=== PATIENT | female | born 1950 | race Caucasian/White ===

== ENCOUNTER 2020-06-02 10:47 | Emergency (ER) | payer MEDICARE, OTHER, SELFPAY ==
[2020-06-02 10:54] VITALS: BP 136/72; PULSE 89; RESP 18; TEMP 36.8; O2SAT 95; BMI 19.5
--- NOTE | 2020-06-02 11:01 | XRR_ITS ---
PROCEDURE INFORMATION: Exam: XR Chest, 1 View Exam date and time: 06/02/2020 11:03 AM Age: 69 years old Clinical indication: Other: Syncope TECHNIQUE: Imaging protocol: XR of the chest Views: 1 view. COMPARISON: No relevant prior studies available. FINDINGS: Lungs: Emphysematous change and interstitial prominence. No acute airspace disease. Pleural space: No pleural effusion. Heart/Mediastinum: No cardiomegaly. Vasculature: Calcification of the thoracic aorta. Bones/joints: Unremarkable. Organs: Status post cholecystectomy. XR/XR chest 1V portable [id number] IMPRESSION: Emphysematous change and interstitial prominence.
--- NOTE | 2020-06-02 11:02 | ECG_ITS ---
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 Measurements Intervals [place] Rate: 84 P: 75 AL: 142 QRS: 12 QRSD: 79 T: -15 QT: 361 QTc: 427 Interpretive Statements SINUS RHYTHM POSSIBLE LEFT ATRIAL ENLARGEMENT [-0.1mV P WAVE IN V1/V2] MODERATE T-WAVE ABNORMALITY, CONSIDER LATERAL ISCHEMIA [-0.1+ mV T WAVE IN I/aVL/V5/V6] No previous ECG available for comparison Electronically Signed On 06-03-2020 0:18:09 CDT by Jessee Lugo M.D. [email or web address] - [id number]
--- NOTE | 2020-06-02 11:10 | CTR_ITS ---
PROCEDURE INFORMATION: Exam: CT Head Without Contrast Exam date and time: 06/02/2020 11:32 AM Age: 69 years old Clinical indication: Injury or trauma; Fall; Initial encounter; Blunt trauma (contusions or hematomas); Consciousness not specified; Dizziness; Additional info: Fall/injury TECHNIQUE: Imaging protocol: Computed tomography of the head without contrast. Radiation optimization: All CT scans at this facility use at least one of these dose optimization techniques: automated exposure control; mA and/or kV adjustment per patient size (includes targeted exams where dose is matched to clinical indication); or iterative reconstruction. COMPARISON: No relevant prior studies available. RADIATION DOSE METRICS: Total DLP (mGy-cm): 672.28 FINDINGS: Brain: No acute post-traumatic brain injury. Symmetric prominence of the cortical and cerebellar sulci. Multifocal small-vessel ischemic change and lacunar infarcts in the supra and infratentorial compartments. Ventricles: Normal configuration of the ventricles. Bones/joints: No acute calvarial injury. Sinuses: No sinus fluid. 3 mm polypoid lesion in the right sphenoid sinus. Mastoid air cells: Opacification of the right mastoid air cells and middle ear. Vasculature: Vascular calcification. Soft tissues: No significant scalp hematoma. CT/CT head wo con* [id number] IMPRESSION: 1. No acute post-traumatic brain injury. 2. Nontraumatic findings as described above. Radiation Dose CTDIVOL = (mGy): DLP = 672.28 (mGy-cm)
[2020-06-02 11:25] VITALS: BP 123/71; BP 156/74; BP 171/75; PULSE 84; PULSE 85; PULSE 93
[2020-06-02 11:31] LABS: Basophils % 0.3 %; Eosinophils % 0.1 %; Hematocrit 37.2 % (37.0-47.0); Hemoglobin 11.4 g/dL (11.5-15.3); Lymphocytes # 0.9 10^3/uL (0.8-4.8); Lymphocytes % 7.1 %; Mean Corpuscular HGB Conc 30.6 g/dL (30.0-36.0); Mean Corpuscular Hemoglobin 27.8 pg (28.0-34.0); Mean Corpuscular Volume 90.7 fL (81-99); Mean Platelet Volume 10.2 fL (7.4-10.4); Monocytes % 7.5 %; Neutrophils # 10.73 10^3/uL (1.8-7.7); Neutrophils % 84.4 %; Nucleated Red Blood Cells % 0 %; Platelet Count 294 10^3/cmm (130-400); White Blood Count 12.7 10^3/uL (4.0-10.0)
--- NOTE | 2020-06-02 11:33 | ED_ITS ---
HPI - General Adult General: Chief complaint: General Medical Stated complaint: N/V PASSED OUT AND FALL Time Seen by Provider: 06/02/20 11:01 Source: patient and family Limitations: no limitations History of Present Illness: HPI narrative: Mrs. Moss is a nice 69-year-old female who comes in after feeling chilled yesterday and today and vomiting throughout the night. Patient states she does not remember vomiting through the night but today she does feel nauseated. She states that while in the living room she fell and hit her head but denies passing out or losing consciousness. She denies any abdominal pain or diarrhea. She is unaware that she is ever had a fever. She denies any chest pain or shortness of breath. She denies any upper respiratory symptoms, sore throat, runny nose, congestion, cough, back pain, abdominal pain or urinary symptoms. Patient states she feels weak at this time but otherwise feels okay. Patient's daughter says that her mom seems a little slow to answer today and does not just seem quite her normal self. Associated symptoms: Deny chest pain, dyspnea, headache(s), rash, palpitations or syncope Review of Systems Const: Denies: fever(s) Eyes: Denies: change in vision or blurry vision ENMT: Denies: throat pain or hoarseness Card: Denies: chest pain, palpitations, syncope, pre-syncope or dyspnea on exertion Resp: Denies: dyspnea, productive cough or non-productive cough GI: Denies: abdominal pain or diarrhea : Denies: flank pain, dysuria, urinary frequency or urinary urgency Musc: Denies: neck pain, back pain or extremity pain Skin/Breast: Denies: rash or pruritus Neuro: Denies: headache(s), numbness in extremities, weakness in extremities or dizziness FOR[facility] ED PFSH: Medical History (Updated 06/02/20 @ 14:31 by Radha Sheppard) Hyperlipidemia Physical Exam Const: COMMON NORMALS: no acute distress, patient oriented x3, no limitations, healthy appearing and well nourished GENERAL APPEARANCE: cooperative, well kempt and well developed HENMT: COMMON NORMALS: normocephalic, atraumatic, external ears normal, EAC's normal and Normal external nose present HEAD & SCALP: normal to inspection, normocephalic and atraumatic FACE & SINUS: normal facial exam and face symmetric NOSE: Normal external nose present and Normal nares present EXTERNAL EAR: Yes external ears normal EXTERNAL AUDITORY CANAL: EAC's normal MOUTH: Normal oral and palatal mucosa present, lip normal and tongue normal Eye: COMMON NORMALS: Equal, round and reactive pupils present and conjunctivae normal GENERAL EYE: appearance normal, both eyes and all related structures ALIGNMENT: Yes alignment normal PERIORBITAL: periorbital findings normal EYELID: eyelids normal CONJUNCTIVA: Yes conjunctivae normal SCLERA: sclerae normal PUPIL: Yes Equal, round and reactive pupils present Neck/C-Spine: COMMON NORMALS: full ROM, no lymphadenopathy, supple, no meningeal signs and no JVD GENERAL: Yes normal visual inspection and Yes trachea midline Chest: COMMONS NORMALS: normal inspection of the chest and normal palpation of entire chest wall Resp: COMMON NORMALS: normal respiratory effort, No retractions, No use of accessory muscles and clear to auscultation bilaterally EFFORT & INSPECTION: Yes able to speak in complete sentences and Yes symmetric chest movement AUSCULTATION: clear to auscultation bilaterally, no crackles, no rales, no rhonchi and no wheezes Cardio: COMMON NORMALS: no JVD, regular rate, regular rhythm, S1 normal heart sound present and S2 normal heart sound present RATE: regular rate RHYTHM: regular rhythm HEART SOUNDS: S1 normal heart sound present, S2 normal heart sound present, no click, no gallops, no murmurs, no rubs and abnormal split S2 GI: COMMON NORMALS: Soft to palpation and No hepatosplenomegaly present PALPATION: Yes Soft to palpation, No Tenderness to palpation present (GI), No Guarding due to palpation present (GI), No Rigid due to palpation, Yes No hepatosplenomegaly present, No Hernia present, No Palpable mass present and No Pulsatile mass present : COMMON NORMALS: Yes no CVA tenderness BLADDER/KIDNEY EXAM: Yes no CVA tenderness EXTERNAL FEMALE EXAM: No Hernia present Back/Pelvis: COMMON NORMALS: no CVA tenderness, thoracic and lumbar spine normal to inspection, no thoracic nor lumbar tenderness and thoraco-lumbar ROM normal Extremity: COMMON NORMALS: normal to inspection, full ROM, capillary refill normal, no joint enlargement, no clubbing, cyanosis or edema and no calf tenderness Neuro: COMMON NORMALS: patient oriented x3, CN's II-XII intact bilaterally, moves all extremities, no focal motor deficits and no sensory deficits noted MENINGEAL SIGNS: Yes no meningeal signs SPEECH: speech normal Psych: COMMON NORMALS: mental status grossly normal, Normal thought process present, cooperative, normal affect, speech normal and activity/motor behavior normal APPEARANCE: Yes well kempt SPEECH: Yes normal speech THOUGHT PROCESS: Normal thought process present Skin: COMMON NORMALS: no rashes or lesions noted, turgor normal, no jaundice, no petechiae and no mottling GENERAL SKIN EXAM: no rashes or lesions noted and turgor normal Course Vital Signs: Vital signs: Vital Signs Temperature 98.2 F 06/02/20 10:54 Pulse Rate 76 06/02/20 15:32 Respiratory Rate 22 H 06/02/20 15:32 Blood Pressure 178/84 06/02/20 15:32 Pulse Oximetry 99 06/02/20 15:32 MDM - General Adult MDM Narrative: Medical decision making narrative: 1426 Benjamín is a nice 69-year-old female who comes in with nausea vomiting during the night. She had no chest pain or shortness of breath. Her EKGs are unremarkable and her troponins have not trended significantly. She does have a UTI on exam. Patient feels back to normal now and is been up and is ambulated throughout the ER without any difficulties. Her nausea is gone and she has never vomited here. She is never had abdominal or flank pain here. This time she appears good she is smiling and happy and conversant with her daughter and me. She wants to go home declines staying in the hospital for any further evaluation. The patient understands that she could get worse again and if so she needs to come back and she understands this. Her daughter is agreeing to stay with her for the next 1 to 2 days to make certain she does okay. At this time though she is feeling better and would like to be discharged. Lab Data: Labs: Lab Results 06/02/20 06/02/20 06/02/20 Range/Units 11:17 11:17 11:17 WBC 12.7 H (4.0-10.0) 10^3/ uL RBC 4.10 (4.1-5.3) 10^6/u L Hgb 11.4 L (11.5-15.3) g/dL Hct 37.2 (37.0-47.0) % MCV 90.7 (81-99) fL MCH 27.8 L (28.0-34.0) pg MCHC 30.6 (30.0-36.0) g/dL RDW 15.0 (12.1-15.1) % Plt Count 294 (130-400) 10^3/c mm MPV 10.2 (7.4-10.4) fL Neut % (Auto) 84.4 % Lymph % (Auto) 7.1 % [place] % (Auto) 7.5 % Eos % (Auto) 0.1 % Baso % (Auto) 0.3 % Neut # (Auto) 10.73 H (1.8-7.7) 10^3/u L Lymph # (Auto) 0.9 (0.8-4.8) 10^3/u L [place] # (Auto) 1.0 H (0.2-0.9) 10^3/u L Eos # (Auto) 0.0 (0.0-0.8) 10^3/u L Baso # (Auto) 0.0 (0.0-0.1) 10^3/u L Nucleated RBC % (a uto) 0 % Nucleated RBCs # 0.0 /100WBC Sodium 140 (136-145) mmol/L Potassium 4.0 (3.5-5.1) mmol/L Chloride 107 (98-107) mmol/L Carbon Dioxide 23 (22-29) mmol/L Anion Gap 14.0 (5-19) BUN 19 (8-23) mg/dL Creatinine 1.1 H (0.5-0.9) mg/dL GFR Calculation 49.1 L (90-130) mL/min Glucose 142 H (65-115) mg/dL Calculated Osmolal ity 289 (285-295) mOsm/k g Calcium 9.1 (8.5-10.5) mg/dL Magnesium 2.1 (1.7-2.3) mg/dL Total Bilirubin 0.4 (0.15-1.2) mg/dL AST 17 (0-32) U/L ALT 17 (0-33) U/L Alkaline Phosphata se 120 H (35-105) IU/L Troponin T Baselin e 17 H (0-10) ng/L Troponin T 120 Min [place] (0-10) ng/L Delta Troponin T (0-10) ABS# Total Protein 6.8 (6.6-8.7) g/dL Albumin 3.6 (3.5-5.2) g/dL Globulin 3.2 (1.3-4.6) g/dL Urine Color (Yellow) Urine Appearance (CLEAR) Urine pH (5-7) Ur Specific Gravit y (1.005-1.030) Urine Protein (Negative) Urine Glucose (UA) (Normal) Urine Ketones (Negative) Urine Blood (Negative) Urine Nitrate (Negative) Urine Bilirubin (NEGATIVE) Urine Urobilinogen (Negative) mg/dL Ur Leukocyte Danielle ase (Negative) Urine RBC (0-2) /hpf Urine WBC (0-5) /hpf Ur Squamous Epith Cells (0-5) Amorphous Sediment Urine Bacteria (NONE) 06/02/20 06/02/20 Range/Units 13:08 13:27 WBC (4.0-10.0) 10^3/ uL RBC (4.1-5.3) 10^6/u L Hgb (11.5-15.3) g/dL Hct (37.0-47.0) % MCV (81-99) fL MCH (28.0-34.0) pg MCHC (30.0-36.0) g/dL RDW (12.1-15.1) % Plt Count (130-400) 10^3/c mm MPV (7.4-10.4) fL Neut % (Auto) % Lymph % (Auto) % [place] % (Auto) % Eos % (Auto) % Baso % (Auto) % Neut # (Auto) (1.8-7.7) 10^3/u L Lymph # (Auto) (0.8-4.8) 10^3/u L [place] # (Auto) (0.2-0.9) 10^3/u L Eos # (Auto) (0.0-0.8) 10^3/u L Baso # (Auto) (0.0-0.1) 10^3/u L Nucleated RBC % (a uto) % Nucleated RBCs # /100WBC Sodium (136-145) mmol/L Potassium (3.5-5.1) mmol/L Chloride (98-107) mmol/L Carbon Dioxide (22-29) mmol/L Anion Gap (5-19) BUN (8-23) mg/dL Creatinine (0.5-0.9) mg/dL GFR Calculation (90-130) mL/min Glucose (65-115) mg/dL Calculated Osmolal ity (285-295) mOsm/k g Calcium (8.5-10.5) mg/dL Magnesium (1.7-2.3) mg/dL Total Bilirubin (0.15-1.2) mg/dL AST (0-32) U/L ALT (0-33) U/L Alkaline Phosphata se (35-105) IU/L Troponin T Baselin e (0-10) ng/L Troponin T 120 Min [place] 17.21 H (0-10) ng/L Delta Troponin T 0.21 (0-10) ABS# Total Protein (6.6-8.7) g/dL Albumin (3.5-5.2) g/dL Globulin (1.3-4.6) g/dL Urine Color Yellow (Yellow) Urine Appearance Cloudy (CLEAR) Urine pH 5 (5-7) Ur Specific Gravit y 1.020 (1.005-1.030) Urine Protein 1+ H (Negative) Urine Glucose (UA) Norm (Normal) Urine Ketones 1+ H (Negative) Urine Blood 2+ H (Negative) Urine Nitrate Positive H (Negative) Urine Bilirubin Neg (NEGATIVE) Urine Urobilinogen Norm (Negative) mg/dL Ur Leukocyte Danielle ase 1+ H (Negative) Urine RBC 5-10 H (0-2) /hpf Urine WBC 80-100 H (0-5) /hpf Ur Squamous Epith Cells 0-4 H (0-5) Amorphous Sediment Not Reportable Urine Bacteria 3+ H (NONE) Imaging Data^: CXR: Attestation: I personally reviewed and interpreted this imaging study as follows: My impression: No acute cardiopulmonary findings. CT Head: Radiologist's impression: [address] [address] [address] Scan Report Signed Patient: Rose Moss Unit #: [id number] : 1950 Age/Sex: 69 / F ADM Date: 06/02/20 Loc: ER Room/Bed: Attending Dr: Ordering Provider/Ordering MD: Radha Sheppard DO Date of Service: 06/02/20 Procedure(s): CT head wo con* [id number] Accession Number(s): [id number] Report Number: [id number] PROCEDURE INFORMATION: Exam: CT Head Without Contrast Exam date and time: 06/02/2020 11:32 AM Age: 69 years old Clinical indication: Injury or trauma; Fall; Initial encounter; Blunt trauma (contusions or hematomas); Consciousness not specified; Dizziness; Additional info: Fall/injury TECHNIQUE: Imaging protocol: Computed tomography of the head without contrast. Radiation optimization: All CT scans at this facility use at least one of these dose optimization techniques: automated exposure control; mA and/or kV adjustment per patient size (includes targeted exams where dose is matched to clinical indication); or iterative reconstruction. COMPARISON: No relevant prior studies available. RADIATION DOSE METRICS: Total DLP (mGy-cm): 672.28 FINDINGS: Brain: No acute post-traumatic brain injury. Symmetric prominence of the cortical and cerebellar sulci. Multifocal small-vessel ischemic change and lacunar infarcts in the supra and infratentorial compartments. Ventricles: Normal configuration of the ventricles. Bones/joints: No acute calvarial injury. Sinuses: No sinus fluid. 3 mm polypoid lesion in the right sphenoid sinus. Mastoid air cells: Opacification of the right mastoid air cells and middle ear. Vasculature: Vascular calcification. Soft tissues: No significant scalp hematoma. CT/CT head wo con* [id number] IMPRESSION: 1. No acute post-traumatic brain injury. 2. Nontraumatic findings as described above. Radiation Dose CTDIVOL = (mGy): DLP = 672.28 (mGy-cm) Dictated By: Jerome Pike MD Signed By: Jerome Pike MD Signed Date/Time: 06/02/20 1214 DD/ 1212 EKG Data^: EKG 1: Attestation: I personally reviewed and interpreted this EKG as follows: EKG interpretation date: 06/02/20 EKG interpretation time: 11:16 Interpretation: Normal sinus rhythm at 84 beats a minute, T wave inversions in 3 and aVF, nonspecific T wave findings in V5 and V6. Normal axis, no blocks, normal intervals. No old for comparison. Computer generated interpretation: Chest X-Ray 06/02/20 11:01 IMPRESSION: Emphysematous change and interstitial prominence. Head CT 06/02/20 11:10 IMPRESSION: 1. No acute post-traumatic brain injury. 2. Nontraumatic findings as described above. Radiation Dose CTDIVOL = (mGy): DLP = 672.28 (mGy-cm) EKG 2: Attestation: I personally reviewed and interpreted this EKG as follows: EKG interpretation date: 06/02/20 EKG interpretation time: 12:50 Interpretation: Normal sinus rhythm at 82 beats a minute, nonspecific ST and T wave changes. Unchanged from previous. Computer generated interpretation: Chest X-Ray 06/02/20 11:01 IMPRESSION: Emphysematous change and interstitial prominence. Head CT 06/02/20 11:10 IMPRESSION: 1. No acute post-traumatic brain injury. 2. Nontraumatic findings as described above. Radiation Dose CTDIVOL = (mGy): DLP = 672.28 (mGy-cm) Discharge Plan Discharge Patient Disposition: Home Clinical Impression: Acute UTI Condition: Stable Prescriptions: New Zofran 4 mg tablet 4 mg PO Q6H PRN (Reason: nausea and vomiting) Qty: 20 RF: 0 cefdinir 300 mg capsule 300 mg PO Q12H 10 Days Qty: 20 RF: 0 No Action atorvastatin 20 mg tablet 20 mg PO DAILY RF: 0 aspirin 325 mg Tablet 325 mg PO DAILY RF: 0 Discharge Orders: Discharge Order (Routine); Ordered 06/02/20 Ordered By: Radha Sheppard Referrals: Marion Wilkinson DO [Primary Care Provider] - 1-3 days Discharge Diet: Advance as tolerated Discharge Activity: Increase activity as tolerated Patient Instructions: Urinary Tract Infection in Women (ED), Dysuria (ED) Activity Restrictions/Additional Instructions: Please return to the ER immediately for any of the signs or symptoms listed on your discharge instruction sheets, worsening/changing of your symptoms, you are not getting better as quickly as expected, or for ANY other cause or concerns. Return to the ER immediately for worsening of your symptoms, vomiting, headache, fever, or for any other cause for concern. Discharge Date/Time: 06/02/20 15:33 Coding Level of Care Code ED Customer Service Trainer for Chg Fwd Exam Comprehensive
[2020-06-02] MEDS: acetaminophen 500 mg Tablet 1000 MG PO (11:46)
[2020-06-02] MEDS: sodium chloride 0.9% 1,000 ML 100 ML IV (11:46)
[2020-06-02] MEDS: ondansetron 2 mg/ML SDV 2 mL 4 MG IVP (11:46)
[2020-06-02 11:49] LABS: Alanine Aminotransferase 17 U/L (0-33); Albumin Level 3.6 g/dL (3.5-5.2); Alkaline Phosphatase 120 IU/L (35-105); Aspartate Amino Transferase 17 U/L (0-32); Blood Urea Nitrogen 19 mg/dL (8-23); Calcium 9.1 mg/dL (8.5-10.5); Carbon Dioxide 23 mmol/L (22-29); Chloride 107 mmol/L (98-107); Globulin 3.2 g/dL (1.3-4.6); Glomerular Filtration Rate 49.1 mL/min (90-130); Glucose 142 mg/dL (65-115); Magnesium 2.1 mg/dL (1.7-2.3); Osmolality Calculated 289 mOsm/kg (285-295); Sodium 140 mmol/L (136-145); Total Bilirubin 0.4 mg/dL (0.15-1.2); Total Protein 6.8 g/dL (6.6-8.7)
[2020-06-02 11:51] LABS: Troponin(5th) Baseline 17 ng/L (0-10)
[2020-06-02 12:17] VITALS: BP 163/66; PULSE 80; RESP 23; O2SAT 100
--- NOTE | 2020-06-02 13:02 | ECG_ITS ---
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 Measurements Intervals [place] Rate: 82 P: 66 AL: 175 QRS: -5 QRSD: 81 T: 8 QT: 379 QTc: 445 Interpretive Statements SINUS RHYTHM Possible left atrial enlargement NONSPECIFIC T-WAVE ABNORMALITY Compared to ECG 06/02/2020 11:16:19 Possible ischemia no longer present T-wave abnormality still present Electronically Signed On 06-03-2020 0:34:50 CDT by Jessee Lugo M.D. [id number]
[2020-06-02 14:05] VITALS: BP 153/64; PULSE 75; RESP 18; O2SAT 100
[2020-06-02 14:07] LABS: Troponin 5 2HR 17.21 ng/L (0-10); Troponin 5 2HR Delta 0.21 ABS# (0-10)
[2020-06-02 14:08] LABS: Bilirubin Urine Neg (NEGATIVE); Blood Urine 2+ (Negative); Glucose Urine UA Norm (Normal); Ketones Urine 1+ (Negative); Leukocyte Esterase Urine 1+ (Negative); Nitrate Urine Positive (Negative); Protein Urine 1+ (Negative); Urine Appearance Cloudy (CLEAR); Urine Color Yellow (Yellow); Urobilinogen Urine Norm (Negative); pH Urine 5 (5-7)
[2020-06-02] MEDS: sodium chloride 0.9% 1,000 ML 999 ML IV (14:11)
[2020-06-02 14:17] LABS: Add Urine Culture? Yes; Bacteria Urine 3+; Squamous Epithelial Cell Urine 0-4 (0-5); WBC Urine 80-100 /hpf (0-5)
[2020-06-02 14:58] VITALS: BP 175/80; PULSE 76; RESP 16; O2SAT 100
[2020-06-02] MEDS: cefTRIAXone 1,000 MG in sodium chloride 0.9% (plus) 50 ML 100 MG IV (14:58)
[2020-06-02 15:32] VITALS: BP 178/84; PULSE 76; RESP 22; O2SAT 99
== END 2020-06-02 15:33 | disposition home or self-care (01) ==
PROVIDERS: Emergency Provider Emergency Medicine; PCP Family Medicine
DX: N39.0 Urinary tract infection, site not specified (principal); Z79.82 Long term (current) use of aspirin; E78.5 Hyperlipidemia, unspecified
CPT/HCPCS: 12345; 36415; 70450; 71045; 80053; 81001; 83735; 84484; 85025; 87077; 87086; 87186; 93005; 96361; 96365; 96375; 99284; J0696; J2405; J7030

== ENCOUNTER 2021-07-09 14:59 | Outpatient (CLI) | payer MEDICARE, OTHER, SELFPAY ==
--- NOTE | 2021-07-09 15:06 | CT_ITS ---
WS: [id number] CTA scan of the head and neck. Additional two-dimensional coronal and sagittal reconstruction along w ith MIP images was performed. 07/09/2021 Clinical Data: CVA Comparison: CT head, 06/02/2020. DLP: 1825.[address] scans at [facility] use at least one of these dose optimization techniques: automated e xposure control; mA and/or kV adjustment per patient size (includes targeted exams where dose is matc hed to clinical indication); or iterative reconstruction. Findings: The carotid arteries bifurcate normally into the internal carotid arteries. There is slight narrowing of the origin of the left internal carotid artery. There is calcification at the right carotid bifur cation. The vertebral arteries are normal. There is no lymphadenopathy within the neck. The intracere bral circulation shows that the internal carotid arteries bifurcate into the anterior and middle cere bral arteries. The basilar arterial system is normal. No aneurysms are seen. There are lacunar infarc ts bilaterally unchanged. There is no prevertebral soft tissue swelling. The lung apices are normal. Cervical spine shows osteo arthritis at C5-C7 with disc space narrowing. No prevertebral soft tissue swelling is seen. The intra orbital contents, paranasal sinuses, internal auditory canals and sella turcica are normal. The parot id glands are normal. The parapharyngeal areas are unremarkable. The larynx is symmetrical. The thyro id gland shows normal enhancement. CT/CT angio headneck* [id number] Impression: 1. Narrowing of the origin of the left internal carotid artery but there are no significant stenoses or occlusions. 2. Normal vertebral arteries and intracerebral circulation. 3. No recent infarct or hemorrhage. 4. Bilateral lacunar infarcts.
[2021-07-09 15:34] LABS: Blood Urea Nitrogen 22 mg/dL (8-23)
[2021-07-09] MEDS: iohexol 350 mg/mL 100 mL Btl IV (15:48)
== END 2021-07-09 15:00 | disposition home or self-care (01) ==
PROVIDERS: PCP Family Medicine; Visit Provider Family Medicine
DX: I63.9 Cerebral infarction, unspecified (principal)
CPT/HCPCS: 70496; 70498; 82565; 84520; Q9967

== ENCOUNTER → 2021-07-21 08:15 | Outpatient (BNVA) | payer MEDICARE, OTHER, SELFPAY | PROVIDERS: PCP Family Medicine; Referring Provider Family Medicine; Visit Provider Nurse Practitioner | DX: Z09 Encounter for follow-up examination after completed treatment for conditions other than malignant neoplasm (principal); Z86.73 Personal history of transient ischemic attack (TIA), and cerebral infarction without residual deficits | CPT/HCPCS: 99204 ==

== ENCOUNTER 2021-07-23 14:47 | Outpatient (CLI) | payer MEDICARE, OTHER, SELFPAY ==
--- NOTE | 2021-07-23 14:52 | MR_ITS ---
WS: [id number] MRI HEAD WITH CONTRAST TECHNIQUE: Sagittal T1, T2 axial, T2 axial FLAIR, axial susceptibility weighted imaging, axial diffus ion weighted images, and coronal T2 images were obtained. Pre and post-T1 axial and post T1 coronal i mages. ADC and FSPGR images. CLINICAL INFORMATION: CVA COMPARISON: CT June 02, 2020 FINDINGS: 9 mm focus of restricted diffusion in the left mayorga radiata consistent with acute ischemia. Additio nal tiny possible focus of acute ischemia in the right anterior temporal lobe along the hippocampal g yrus. Multiple foci of T2 shine through in the periventricular white matter. Moderate to advanced patchy periventricular white matter changes with multiple chronic appearing lacu emilia infarcts in the periventricular and pericallosal white matter. Chronic appearing lacunar infarcts in the right body of the corpus callosum, bilateral caudate, bilateral basal ganglia left greater th an right, right thalamus, left internal capsule, shashi, and middle cerebellar peduncles. Moderate pare nchymal volume loss. Volume loss slightly worse in the cerebellum and posterior fossa. Partial opacification right greater than left mastoid air cells. A few small retention cysts in the p aranasal sinuses. Chronic hemosiderin in the left posterior limb internal capsule. Tiny punctate focu s of chronic hemosiderin in the right cerebellum. Normal optic chiasm and pituitary infundibulum. Mil d symmetric atrophy of the lobes and hippocampal formations. No abnormal gadolinium enhancement. No abnormal intracranial enhancing lesions. Normal visualized dur al venous sinuses. MR/MR head wo/w con [id number] IMPRESSION: 1. 9 mm focus of restricted diffusion in the left mayorga radiata consistent wi th acute ischemia with mild edema. No mass effect or midline shift. 2. Moderate to advanced supra and infratentorial white matter changes more pro minent in the periventricular and pericallosal white matter with multiple chron ic lacunar infarcts described above. Findings compatible with small vessel dise ase in a patient this age. 3. Prominent pericallosal involvement can be seen with Superimposed sequelae f rom chronic demyelinating disease. Recommend correlation with clinical history. 4. Chronic lacunar infarcts in the shashi and middle cerebellar peduncles bilate rally. 5. No abnormal gadolinium enhancement. 6. Partial opacification right greater than left mastoid air cells. A few rete ntion cysts in the maxillary sinuses. 7. Parenchymal volume loss slightly more prominent in the brainstem and cerebe llum.
[2021-07-23] MEDS: gadobenate dimeglumine 20 mL vial IV (15:42)
== END 2021-07-23 14:48 | disposition home or self-care (01) ==
LOC: RADSHAW 14:51
PROVIDERS: PCP Family Medicine; Visit Provider Family Medicine
DX: I63.9 Cerebral infarction, unspecified (principal)
CPT/HCPCS: 70553; A9577

== ENCOUNTER 2021-07-24 12:18 | Outpatient (RCR) | payer MEDICARE, OTHER, SELFPAY | END 2021-08-03 23:59 | disposition home or self-care (01) | LOC: SR3 12:18 | PROVIDERS: PCP Family Medicine; Referring Provider Family Medicine; Visit Provider Family Medicine | DX: I63.9 Cerebral infarction, unspecified (principal) | CPT/HCPCS: 92507; 92523; 92526; 97110; 97162; 97165 ==

== ENCOUNTER 2021-08-04 06:00 | Outpatient (RCR) | payer MEDICARE, OTHER, SELFPAY | END 2021-09-02 23:59 | disposition home or self-care (01) | LOC: SR3 06:00 | PROVIDERS: PCP Family Medicine; Visit Provider Family Medicine | DX: I63.9 Cerebral infarction, unspecified (principal) | CPT/HCPCS: 92507; 92526; 97110; 97112; 97168; 97535 ==

== ENCOUNTER 2021-08-15 07:52 | Outpatient (CLI) | payer MEDICARE, OTHER, SELFPAY ==
--- NOTE | 2021-08-15 07:59 | MRR_ITS ---
PROCEDURE INFORMATION: Exam: MR Neck Without and With Contrast Exam date and time: 08/15/2021 7:59 AM Age: 70 years old Clinical indication: Abnormal findings; Abnormal xray or scan of face; Prior surgery; Surgery type: Endarterectomy; Additional info: Neck mass TECHNIQUE: Imaging protocol: MR images of the neck without and with intravenous contrast. Contrast material: MULTIHANCE; Contrast volume: 12 ml; Contrast route: INTRAVENOUS (IV); COMPARISON: CT angio headneck* [id number] 07/09/2021 3:38 PM FINDINGS: Nasopharynx: Unremarkable. Oropharynx: Unremarkable. Hypopharynx: Unremarkable. Larynx: Unremarkable. Submandibular/Parotid glands: Unremarkable. Retropharyngeal space: Unremarkable. Mastoid air cells: Fluid is noted in the right mastoids. Vasculature: There is a mass lateral to the left carotid bifurcation. This corresponds to the density seen on CT. This is markedly hypointense on T2 weighted images. It is relatively isointense on T1 weighted images with faint postcontrast enhancement. This has an oval appearance and tapers at its superior and inferior margins. This correlates to the finding on the prior CT. The internal jugular vein tapers into this oval density both superiorly and inferiorly. On the previous CT there was contrast within the jugular superior and inferior to this oval density. It is primarily anterolateral to the left carotid bifurcation although it does slightly extend into the bifurcation. No patent jugular vein is seen in the area of the mass. Approximate dimensions of this mass are approximately 14 x 13 mm on axial images and 3 cm in craniocaudad dimension. Lymph nodes: No lymphadenopathy. Soft tissues: Unremarkable. Bones/joints: Unremarkable Other findings: Small old pontine lacunar infarcts are noted. MR/MR orbit face neck wo/w* [id number] IMPRESSION: 14 x 13 x 30 mm mass anterolateral to the left carotid bifurcation. It does not have the signal characteristics or enhancement pattern of a carotid body tumor. At the superior and inferior borders of this mass it appears to taper into the internal jugular vein. 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 The alternative would be a tumor such is a neurogenic tumor severely compressing and occluding the internal jugular vein. The appearance of the jugular tapering into and exiting this mass, particularly on the prior CT, favors thrombosed vein. It is suggested that the ultrasound be repeated with effort to define the relationship of the internal jugular vein to the mass. Radiation Dose CTDIVOL = (mGy): DLP = (mGy-cm)
[2021-08-15] MEDS: gadobenate dimeglumine 20 mL vial IV (08:52)
== END 2021-08-15 07:53 | disposition home or self-care (01) ==
PROVIDERS: PCP Family Medicine; Visit Provider Family Medicine
DX: R22.1 Localized swelling, mass and lump, neck (principal)
CPT/HCPCS: 70543; A9577

== ENCOUNTER 2021-09-03 06:00 | Outpatient (RCR) | payer MEDICARE, OTHER, SELFPAY | END 2021-10-03 23:59 | disposition home or self-care (01) | LOC: SR3 06:00 | PROVIDERS: PCP Family Medicine; Visit Provider Family Medicine | DX: I63.9 Cerebral infarction, unspecified (principal) | CPT/HCPCS: 92507; 97110; 97112 ==

== ENCOUNTER 2021-09-15 14:33 | Outpatient (CLI) | payer MEDICARE, OTHER, SELFPAY ==
--- NOTE | 2021-09-15 14:36 | USCV_ITS ---
Rose Moss Age: 71 Gender: F : 1950 Exam Date: 09/15/2021 14:44 Ordering Phys: Hussain Bustillo MD Technologist: Lindy Garcia Exam Location: [facility] – [place] Indication: MASS LT NECK Risk Factors: Unknown PLEASE SEE MRICT. THERE IS NO JUGULAR SEEN ON LT. Previous Vascular Surgery: L, L CEA Right Brachial BP: / Left Brachial BP: / Right Left Velocity (cm/s) Spectral Plaque Velocity (cm/s) Spectral Plaque Syst/Diast Broadening Syst/Diast Broadening 79.40/ 13.20 Prox CCA 99.90 / 22.30 87.10/ 16.50 Homo Mid CCA 71.00 / 18.40 Hetro 89.30/ 15.40 Hetro Distal CCA 89.40 / 23.70 Hetro 89.30/ 20.90 Hetro Prox ICA 143.30/ 32.90 Hetro 79.40/ 20.90 Hetro Mid ICA 145.90/ 36.80 Hetro 63.90/ 19.80 Distal ICA 163.00/ 38.10 141.10 Hetro ECA 177.50 Hetro 1.03 ICA/CCA 2.30 Antegrade Vertebral Antegrade 51.30/ 10.90 cm/s 70.10/ 15.40 cm/s Bi Subclavian Bi 160.4 117.1 0 0 CONCLUSIONS Right ICA stenosis <50%. Mild atheromatous plaque right carotid bulb/ICA. Left ICA stenosis 50-69%. Moderate atheromatous plaque Left carotid bulb/ICA. History of Left CEA. No Left jugular vein visualized. Only a small amount of flow in the left neck soft tissue mass seen on prior MRI today measuring 3.7cm x 1.2 x 1.4cm Normal antegrade Doppler flow noted in the right vertebral artery. Normal antegrade Doppler flow noted in the left vertebral artery. Devonte Seay MD (Electronically Signed) Final Date: 15 September 2021 17:17 S
== END 2021-09-15 14:34 | disposition home or self-care (01) ==
LOC: US 14:34
PROVIDERS: PCP Family Medicine; Visit Provider Family Medicine
DX: R22.1 Localized swelling, mass and lump, neck (principal); I65.23 Occlusion and stenosis of bilateral carotid arteries
CPT/HCPCS: 93880

== ENCOUNTER 2021-10-14 14:49 | Outpatient (RCR) | payer MEDICARE, OTHER, SELFPAY | END 2021-11-03 23:59 | disposition home or self-care (01) | LOC: SR3 14:49 | PROVIDERS: PCP Family Medicine; Visit Provider Family Medicine | DX: I63.9 Cerebral infarction, unspecified (principal) | CPT/HCPCS: 92507; 97110; 97112 ==

== ENCOUNTER 2021-12-25 14:37 | Outpatient (CLI) | payer MEDICARE, OTHER, SELFPAY ==
--- NOTE | 2021-12-25 14:52 | XR_ITS ---
WS: [id number] SCREENING DEXA SCAN [place] CLINICAL INFORMATION: POST MENOPAUSAL COMPARISON: None. FINDINGS: The L1-L4 bone mineral density measures 0.794 g/cm2. This corresponds to a T score score of -3.2 and Z score of -0.9. Left femoral neck bone mineral density measures 0.642 g/cm2. This corresponds to a T score of -2.9 an d Z score of -0.9. Right femoral neck bone mineral density measures 0.638 g/cm2. This corresponds to a T score -2.9of an d Z score of -0.9. Mean femoral neck bone mineral density measures 0.640 g/cm2. This corresponds to a T score of -2.9 an d Z score of -0.9. XR/XR DEXA axial skeleton* [id number] IMPRESSION: Osteoporosis lumbar spine. Osteoporosis femoral necks. Patient's FRAX calculated 10 year probability for major osteoporotic fracture i s 20.3 % and osteoporotic hip fracture is 10.9%.
== END 2021-12-25 14:38 | disposition home or self-care (01) ==
PROVIDERS: PCP Family Medicine; Visit Provider Family Medicine
DX: Z78.0 Asymptomatic menopausal state (principal); M81.0 Age-related osteoporosis without current pathological fracture
CPT/HCPCS: 77080

== ENCOUNTER 2022-01-09 15:00 | Outpatient (CLI) | payer MEDICARE, OTHER, SELFPAY ==
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
[2022-01-09 15:57] LABS: Blood Urea Nitrogen 21 mg/dL (8-23)
[2022-01-09] MEDS: iodixanol 320 mg/mL 100mL Btl IV (15:58)
== END 2022-01-09 15:01 | disposition home or self-care (01) ==
PROVIDERS: Radiology Neuroradiology; PCP Family Medicine; Visit Provider Family Medicine
DX: R22.1 Localized swelling, mass and lump, neck (principal)
CPT/HCPCS: 70491; 82565; 84520

== ENCOUNTER 2022-04-27 10:40 | Outpatient (CLI) | payer MEDICARE, OTHER, SELFPAY ==
--- NOTE | 2022-04-27 10:51 | MR_ITS ---
WS: [id number] MRI NECK WITH CONTRAST TECHNIQUE: Noncontrast axial T1, axial T2 FSE fat sat, coronal T2 fat sat, coronal T1, coronal T1 fat sat, sagittal T2 fat sat, plus contrast enhanced coronal, sagittal, and axial T1 fat sat images obta ined. CLINICAL INFORMATION: NECK MASS COMPARISON: CT neck January 09, 2022, MRI August 15, 2021, CTA July 09, 2021. FINDINGS: Images somewhat limited due to motion artifact. Previously described lesion involving the LEFT carotid sheath reportedly represents jugular vein thro mbosis is unchanged in appearance. This is less well-defined today due to patient motion. This measur es approximately 1.2 x 1.1 x 1.8 cm. No evidence of progression. Adjacent, carotid artery , internal carotid artery and external carotid arteries are patent. Parotid glands are normal. Submandibular glands are normal. Tongue base appears normal. No evidence o f supraglottic or glottic mass. No cervical lymphadenopathy. No other significant changes compared to previous. Opacification RIGHT greater than LEFT mastoid air cells. Mild mucosal thickening ethmoid air cells. C hronic lacunar infarcts LEFT cerebellum. Chronic lacunar infarcts in the shashi. MR/MR orbit face neck wo/w* [id number] IMPRESSION: 1. 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 Some images degraded by chaitanya on. No evidence of progression. 2. No other significant changes compared to previous examinations.
== END 2022-04-27 10:41 | disposition home or self-care (01) ==
LOC: RAD 10:41
PROVIDERS: PCP Family Medicine; Visit Provider Otolaryngology
DX: M54.2 Cervicalgia (principal)
CPT/HCPCS: 70543

== ENCOUNTER 2022-04-29 06:00 | Outpatient (CLI) | payer MEDICARE, OTHER, SELFPAY | END 2022-04-29 06:01 | disposition home or self-care (01) | LOC: LAB 07-30 07:09 | PROVIDERS: PCP Family Medicine; Visit Provider Specialist | DX: C44.319 Basal cell carcinoma of skin of other parts of face (principal) | CPT/HCPCS: 88304; 88331 ==

== ENCOUNTER 2022-08-06 08:53 | Outpatient (CLI) | payer MEDICARE, OTHER, SELFPAY ==
[2022-08-06 09:06] VITALS: BP 149/84; PULSE 86; RESP 18; TEMP 36.2; O2SAT 96
[2022-08-06] MEDS: denosumab 60 mg SDV SUBCUT (09:13)
[2022-08-06 09:25] VITALS: BP 127/72; PULSE 76; RESP 18; TEMP 36.3; O2SAT 99
== END 2022-08-06 08:54 | disposition home or self-care (01) ==
PROVIDERS: PCP Family Medicine; Visit Provider Family Medicine
DX: M81.0 Age-related osteoporosis without current pathological fracture (principal)
CPT/HCPCS: 96372; J0897

== ENCOUNTER → 2022-12-09 13:06 | Outpatient (BNVA) | payer MEDICARE, OTHER, SELFPAY | PROVIDERS: PCP Family Medicine; Referring Provider Specialist; Visit Provider Specialist | DX: G37.9 Demyelinating disease of central nervous system, unspecified (principal); F17.210 Nicotine dependence, cigarettes, uncomplicated; Z86.73 Personal history of transient ischemic attack (TIA), and cerebral infarction without residual deficits; R26.89 Other abnormalities of gait and mobility | CPT/HCPCS: 99215 ==

== ENCOUNTER 2023-01-04 09:01 | Outpatient (CLI) | payer MEDICARE, OTHER, SELFPAY ==
--- NOTE | 2023-01-04 08:45 | MR_ITS ---
WS: [id number] MRI HEAD WITH CONTRAST TECHNIQUE: Sagittal T1, T2 axial, T2 axial FLAIR, axial susceptibility weighted imaging, axial diffus ion weighted images, and coronal T2 images were obtained. Pre and post-T1 axial and post T1 coronal i mages. ADC and FSPGR images. CLINICAL INFORMATION: R29.90 - Unspecified symptoms and signs involving the ner... COMPARISON: MRI April 27, 2022 and July 23, 2021 FINDINGS: Restricted diffusion involving the splenium of corpus callosum most compatible with acute i schemia. This is new from previous with mild edema and a small central lacunar infarct. No abnormal g adolinium enhancement. No other foci of restricted diffusion. Area of ischemia measures 14 x 8 mm. Moderate to advanced patchy periventricular white matter changes with multiple chronic lacunar infarc ts in the periventricular and pericallosal white matter unchanged from previous. Small chronic lacuna r infarcts in the right body of the corpus callosum, bilateral caudate, bilateral basal ganglia left greater than right, right thalamus, left internal capsule, shashi, and middle cerebellar peduncles yuan lar to previous. Moderate parenchymal volume loss. Volume loss slightly worse in the cerebellum and p osterior fossa. Volume loss in the brainstem. Opacification RIGHT mastoid air cells. Mucosal thickening LEFT mastoid tip. Chronic hemosiderin in th e periventricular white matter and posterior limb LEFT internal capsule. Tiny punctate focus of chron ic hemosiderin in the right cerebellum. Normal optic chiasm and pituitary infundibulum. Mild symmetric atrophy temporal lobes and hippocampal formations. No abnormal gadolinium enhancement. No abnormal intracranial enhancement. Normal visuali zed dural venous sinuses. MR/MR head wo/w con [id number] IMPRESSION: 1. Restricted diffusion involving the splenium of corpus callosum most compati ble with acute ischemia. This is new from previous with mild edema and a small central lacunar infarct. Area of ischemia measures 14 x 8 mm. 2. No abnormal gadolinium enhancement. Moderate to advanced small vessel campos es with multiple chronic lacunar infarcts described above similar to previous. 3. Parenchymal volume loss worse in the posterior fossa and brainstem 4. Chronic lacunar infarcts in the shashi and middle cerebellar peduncles bilate rally. 5. RIGHT mastoid effusion. Notified Ana Hudson MD at 01/04/2023 10:45 AM.
[2023-01-04] MEDS: gadobenate dimeglumine 20 mL vial IV (09:54)
== END 2023-01-04 09:02 | disposition home or self-care (01) ==
LOC: RAD 09:02
PROVIDERS: PCP Family Medicine; Visit Provider Specialist
DX: R29.90 Unspecified symptoms and signs involving the nervous system (principal); G93.6 Cerebral edema; I63.81 Other cerebral infarction due to occlusion or stenosis of small artery
CPT/HCPCS: 70553; A9577

== ENCOUNTER → 2023-02-03 16:31 | Outpatient (BNVA) | payer MEDICARE, OTHER, SELFPAY | PROVIDERS: PCP Family Medicine; Visit Provider Specialist | DX: I65.29 Occlusion and stenosis of unspecified carotid artery (principal); Z86.73 Personal history of transient ischemic attack (TIA), and cerebral infarction without residual deficits; F17.210 Nicotine dependence, cigarettes, uncomplicated | CPT/HCPCS: 99214 ==

== ENCOUNTER 2023-02-06 09:45 | Outpatient (CLI) | payer MEDICARE, OTHER, SELFPAY ==
--- NOTE | 2023-02-06 09:45 | USCV_ITS ---
Rose Moss Age: 72 Gender: F : 1950 Exam Date: 02/06/2023 10:19 Ordering Phys: Ana Hudson MD Technologist: SIM Exam Location: [facility] [place] Indication: Strokes Risk Factors: Previous Vascular Surgery: Right Brachial BP: / Left Brachial BP: / Right Left Velocity (cm/s) Spectral Plaque Velocity (cm/s) Spectral Plaque Syst/Diast Broadening Syst/Diast Broadening 72.60/ 17.10 Prox CCA 58.10 / 15.40 67.50/ 18.80 Mid CCA 59.10 / 12.90 77.80/ 17.10 Distal CCA 70.90 / 17.10 77.20/ 22.10 Prox ICA 344.60/ 133.90 60.70/ 11.10 Mid ICA 237.00/ 22.80 85.20/ 19.20 Distal ICA 136.70/ 32.90 110.30 ECA 125.70 1.10 ICA/CCA 4.86 Antegrade Vertebral Antegrade 80.60/ 10.10 cm/s 74.30/ 13.70 cm/s Bi Subclavian Bi 121.5 126.2 0 0 CONCLUSIONS Right ICA stenosis <50%. Mild atheromatous plaque left carotid bulb/ICA. Left ICA stenosis 70-99%. Moderate atheromatous plaque left carotid bulb/ICA with intimal thickening. Recommend CTA in further evaluation. Markedly elevated velocities left proximal ICA Normal antegrade Doppler flow noted in the right vertebral artery. Normal antegrade Doppler flow noted in the left vertebral artery. Devonte Seay MD (Electronically Signed) Final Date: 07 Feb 2023 10:49 S
== END 2023-02-06 09:46 | disposition home or self-care (01) ==
LOC: RAD 09:53
PROVIDERS: PCP Family Medicine; Visit Provider Specialist
DX: I63.81 Other cerebral infarction due to occlusion or stenosis of small artery (principal); I65.22 Occlusion and stenosis of left carotid artery
CPT/HCPCS: 93880

== ENCOUNTER 2023-02-22 07:31 | Outpatient (CLI) | payer MEDICARE, OTHER, SELFPAY ==
[2023-02-22 08:09] LABS: Blood Urea Nitrogen 18 mg/dL (8-23)
--- NOTE | 2023-02-22 08:10 | CT_ITS ---
WS: [id number] CTA HEAD AND NECK TECHNIQUE: Contrast enhanced CTA of the head and neck with coronal and sagittal reformatted images an d maximum intensity projection (MIP) images. NASCET criteria utilized. CLINICAL INFORMATION: I65.22 - Occlusion and stenosis of left carotid artery COMPARISON: None. DLP: 1112.[address] scans at [facility] use at least one of these dose optimization techniques: automated e xposure control; mA and/or kV adjustment per patient size (includes targeted exams where dose is matc hed to clinical indication); or iterative reconstruction. FINDINGS: Moderate to advanced small vessel changes similar to the prior MRI January 04, 2023. Multiple chronic lacunar infarcts involving the RIGHT caudate, RIGHT thalamus, LEFT caudate, and LEFT mayorga radiata. Chronic lacunar infarcts involving the shashi. Intracranial vascular calcification. LEFT masto id air cells well aerated. Paranasal sinuses are well aerated. Opacification RIGHT mastoid air cells and RIGHT middle ear. RIGHT: RIGHT common carotid artery is patent. Moderate atheromatous plaque RIGHT carotid bulb extendi ng into the ICA with stenosis measuring 38%. RIGHT ICA is patent to the skull base. LEFT: LEFT common carotid artery is patent. Prior postoperative changes LEFT carotid endarterectomy. No significant LEFT ICA stenosis. LEFT ICA is patent to the skull base. Elevated velocities on ultras ound likely due to tortuosity and postoperative changes. INTRACRANIAL CTA: Both vertebral arteries are patent. Basilar artery is patent. Normal vascularity to the WEB FEEDER territory bilaterally. Both ICAs are patent at the skull base. Moderate cavernous carotid calcification. Normal vascularity to the HILLARY and MCA territories bilaterally. Mild intracranial atheromatous disease. No evidence of pr oximal flow limiting stenosis. Fusiform aneurysmal dilatation LEFT cavernous carotid artery measuring 8.0mm Tiny LEFT posterior communicating artery aneurysm or infundibulum measuring 2 mm. 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 LEFT supraclinoid aneurysm 3.[address]/CT angio headneck* [id number] IMPRESSION: 1. Moderate calcified atheromatous plaque RIGHT carotid bulb extending into th e ICA with stenosis measuring approximately 38% 2. Postoperative changes LEFT craniectomy. No significant stenosis. 3. No evidence of proximal flow-limiting intracranial stenosis. Mild intracran ial atheromatous disease. 4. Small LEFT greater than RIGHT supraclinoid ICA aneurysms measuring 3 mm on the RIGHT. 5. Additional tiny posterior communicating artery aneurysm or infundibulum. 6. Fusiform aneurysmal dilatation LEFT cavernous carotid artery measuring 8.0m m.
[2023-02-22] MEDS: iohexol 350 mg/mL 500 mL Btl (per mL) IV (08:29)
== END 2023-02-22 07:32 | disposition home or self-care (01) ==
PROVIDERS: PCP Family Medicine; Visit Provider Specialist
DX: I65.21 Occlusion and stenosis of right carotid artery (principal); I72.0 Aneurysm of carotid artery; Z98.890 Other specified postprocedural states
CPT/HCPCS: 70496; 70498; 82565; 84520; Q9967

== ENCOUNTER 2023-09-02 13:13 | Outpatient (CLI) | payer MEDICARE, SELFPAY ==
--- NOTE | 2023-09-02 13:17 | MM_ITS ---
WS: [id number] Bilateral screening 3D tomosynthesis digital mammogram, 09/02/2023 Clinical Data: SCREENING Comparison: None. Findings: The breast parenchymal pattern shows heterogeneous density. No spiculated masses or clustered calcifi cations are seen. There are no secondary signs of carcinoma. Impression: 1. Negative bilateral mammogram with no prior exam for review. 2. Recommend annual screening mammograms. MM/[place] [id number] BIRADS: 1-Negative FOLLOW UP: 1 Year Follow-up The CAD food checkers and cashiers supervisor was used.
== END 2023-09-02 13:14 | disposition home or self-care (01) ==
LOC: RAD 13:13
PROVIDERS: PCP Family Medicine; Visit Provider Family Medicine
DX: Z12.31 Encounter for screening mammogram for malignant neoplasm of breast (principal)
CPT/HCPCS: 77063; 77067

== ENCOUNTER 2024-08-25 09:39 | Outpatient (CLI) | payer MEDICARE, OTHER, SELFPAY ==
--- NOTE | 2024-08-25 09:43 | CT_ITS ---
WS: [email or web address] LDCT LUNG CANCER SCREENING TECHNIQUE: Noncontrast CT of the chest with coronal and sagittal reformatted images. CLINICAL INFORMATION: NICOTINE DEPENDENCE,CIGARETTES COMPARISON: None. DLP: 45.79 mGy.cm DIvol: Mean CTDIvol: 0.70 (mGy) All CT scans at [facility] use at least one of these dose optimization techniques: automat ed exposure control; mA and/or kV adjustment per patient size (includes targeted exams where dose is matched to clinical indication); or iterative reconstruction. FINDINGS: Aortic calcification. Normal caliber thoracic aorta. Coronary calcification. No mediastinal or hilar lymphadenopathy. No axillary lymphadenopathy. Small LEFT adrenal nodule likely adenoma.. Splenic artery calcification. Cholecystectomy clips. Donna l GE junction. Several subcentimeter nodules in the LEFT lower lobe, lingula, and LEFT upper lobe. Largest nodule 9 mm LEFT lower lobe laterally. 4 mm nodule LEFT upper lobe anteriorly. 4 mm subpleural nodule RIGHT up per lobe. 3 mm nodule RIGHT lung apex with surrounding hazy groundglass infiltrate may be inflammator y. 4 mm subpleural nodule RIGHT lower lobe at the diaphragm. Remainder of the small scattered nodules are less than [address]/CT lung screening [id number] IMPRESSION: 9 mm nodule LEFT lower lobe laterally is indeterminate. Recommend f urther evaluation with PET/CT. If PET/CT cannot be performed then recommend 3-m onth follow-up. Small neoplasm not excluded. No prior comparisons. LUNG-RADS: 4A-Probably Suspicious FOLLOW UP: PET/CT recommended
== END 2024-08-25 09:40 | disposition home or self-care (01) ==
LOC: RAD 09:40
PROVIDERS: PCP Family Medicine; Visit Provider Family Medicine
DX: Z12.2 Encounter for screening for malignant neoplasm of respiratory organs (principal); I70.0 Atherosclerosis of aorta; I25.84 Coronary atherosclerosis due to calcified coronary lesion; D35.02 Benign neoplasm of left adrenal gland; D73.89 Other diseases of spleen; F17.210 Nicotine dependence, cigarettes, uncomplicated; R91.8 Other nonspecific abnormal finding of lung field
CPT/HCPCS: 71271

== ENCOUNTER 2024-08-29 15:09 | Outpatient (CLI) | payer MEDICARE, OTHER, SELFPAY ==
--- NOTE | 2024-08-29 15:12 | USCV_ITS ---
Rose Moss Age: 73 Gender: F : 1950 Exam Date: 08/29/2024 15:28 Ordering Phys: Hussain Bustillo MD Technologist: USR [place] [facility] [place]: Risk Factors: Previous Vascular Surgery: Right Brachial BP: / Left Brachial BP: / Right Left Velocity (cm/s) Spectral Plaque Velocity (cm/s) Spectral Plaque Syst/Diast Broadening Syst/Diast Broadening 78.90/ 10.20 Prox CCA 61.30 / 14.10 81.50/ 16.70 Mid CCA 85.30 / 22.20 90.60/ 18.00 Distal CCA 79.60 / 23.50 69.80/ 12.90 Prox ICA 71.60 / 13.70 72.20/ 13.70 Mid ICA 61.50 / 16.20 74.20/ 20.60 Distal ICA 72.50 / 18.40 110.50 ECA 69.90 0.80 ICA/CCA 0.90 Antegrade Vertebral Antegrade 29.20/ 3.30 cm/s 40.30/ 13.30 cm/s Bi Subclavian Bi 80.40 133.2 0 CONCLUSIONS Right ICA stenosis <50%. Moderate atheromatous plaque right carotid bulb/ICA. Left ICA stenosis <50%. Prior LEFT CEA. Normal antegrade Doppler flow noted in the right vertebral artery. Normal antegrade Doppler flow noted in the left vertebral artery. Devonte Seay MD (Electronically Signed) Final Date: 29 August 2024 16:51 S
== END 2024-08-29 15:10 | disposition home or self-care (01) ==
LOC: RAD 15:10
PROVIDERS: PCP Family Medicine; Visit Provider Family Medicine
DX: I65.23 Occlusion and stenosis of bilateral carotid arteries (principal)
CPT/HCPCS: 93880

== ENCOUNTER 2024-09-04 11:18 | Outpatient (CLI) | payer MEDICARE, OTHER, SELFPAY ==
--- NOTE | 2024-09-04 11:19 | MM_ITS ---
WS: [email or web address] BILATERAL SCREENING DIGITAL TOMOSYNTHESIS MAMMOGRAM WITH CAD HISTORY: SCREENING COMPARISON: 09/02/2023 Bilateral CC and MLO views with tomosynthesis and synthetic mammography submitted. Computer aided det ection analyzed. Breast composition: The breasts are heterogeneously dense, which may obscure small masses. No suspici ous masses, microcalcifications or architectural distortion. There is a stable cluster of calcificati ons in the posterior central LEFT breast just below the nipple line. MM/MM scr tomosynthesis [id number] IMPRESSION: BI-RADS: 2 - Benign FOLLOW UP: 1 Year Follow-up
== END 2024-09-04 11:19 | disposition home or self-care (01) ==
LOC: RAD 11:19
PROVIDERS: PCP Family Medicine; Visit Provider Family Medicine
DX: Z12.31 Encounter for screening mammogram for malignant neoplasm of breast (principal); R92.333 Mammographic heterogeneous density, bilateral breasts; R92.1 Mammographic calcification found on diagnostic imaging of breast
CPT/HCPCS: 77063; 77067

== ENCOUNTER 2024-09-29 13:09 | Outpatient (CLI) | payer MEDICARE, OTHER, SELFPAY ==
--- NOTE | 2024-09-29 08:38 | PETR_ITS ---
PROCEDURE INFORMATION: Exam: PET/CT Skull Base to Mid-thigh Exam date and time: 09/29/2024 2:12 PM Age: 74 years old Clinical indication: Abnormal findings; Lll lung nodule; Additional info: Abnormal imaging LABS AND CLINICAL REPORTS: Glucose: 85 mg/dl Treatment strategy for malignancy (PET staging): Initial Staging (PI) TECHNIQUE: Imaging protocol: Following at least four-hour fasting and following the injection of radiopharmaceutical, low dose CT images were obtained. Then, PET images were obtained. Attenuation corrected images were constructed using the CT scan. Fused images of PET and CT were reviewed. The standardized uptake values (SUV) reported below are maximum values within a region of interest, expressed in gm/ml. Exam includes orbital meatal line to mid-thigh. SUV normalization method: BodyWeight Radiopharmaceutical: 10.8 mCi F-18 FDG (Fluorodeoxyglucose), IV. Time of imaging post radiopharmaceutical administration: 46 minutes Injection site: right ac COMPARISON: CT lung screening [id number] 08/25/2024 10:10 AM, CTA head and neck 02/22/2023 FINDINGS: Brain: Visualized brain has normal physiologic uptake. Mastoids and auditory system: Fluid is noted throughout the right mastoid air cells and middle ear. Mild fluid in the left mastoid air cells is present. No abnormal uptake in these areas is identified. Pharynx: No abnormal uptake. Larynx: No abnormal uptake. Lungs, pleura and trachea: Small similar solid bilateral pulmonary nodules are not radiotracer avid, the largest of which is present in the left lower lobe measuring 0.9 x 0.4 cm in series 202, image 179. Heart: Normal physiologic uptake. Mediastinal space: No abnormal uptake. Liver: No abnormal uptake. Gallbladder and biliary ducts: No abnormal uptake. Cholecystectomy clips are present. Pancreas: No abnormal uptake. Spleen: No abnormal uptake. Adrenal glands: No abnormal uptake. Kidneys and ureters: Normal physiologic uptake. Stomach and bowel: No abnormal uptake. There is physiologic appearing uptake within the stomach and bowel. Colonic diverticula are identified. Reproductive: No abnormal uptake. Ovoid coarse calcifications in the uterus are likely within leiomyomas. Vasculature: No abnormal uptake. There are diffuse atherosclerotic calcifications, including within the coronary arteries. Lymph nodes: No abnormal uptake. No lymphadenopathy in the head, neck, chest, abdomen, pelvis, and extremities. Skeleton: No abnormal uptake in the visualized axial and appendicular skeleton. The bones appear demineralized. Degenerative changes in the spine are identified. A small focus of focal uptake in the lower thoracic spinal cord on series 301, image 135 is identified, SUV max 3.9 on series 202, image 164. Soft tissues: No abnormal uptake in the visualized head, neck, chest, abdomen, pelvis, and extremities. METRICS: Mediastinal blood pool: SUV max 2.4, SUV mean 2.2 PET/PET skull to thigh INIT [id number] IMPRESSION: 1. There are similar number and size of solid bilateral pulmonary nodules, without evidence of abnormal uptake. Assessment of small nodules can be limited by PET-CT. For patients at low risk (minimal or absent history of smoking and of other known risk factors), recommend CT Chest at 3-6 months, then consider CT Chest at 18-24 months. For patients at high risk (history of smoking or of other known risk factors), recommend CT Chest at 3-6 months, then CT Chest at 18-24 months. (Reference: Justin) 2. Focal uptake within the lower thoracic spinal cord is slightly greater than expected for typical physiologic uptake. While this finding can represent upper limit of normal physiologic uptake, consider MRI of the thoracic spine with and without contrast for more definitive assessment. 3. Ckzpa-[id number]-left mastoid effusions, with evidence of fluid in the right middle ear, which can be associated with otitis media. 4. Colonic diverticulosis. 5. Additional nonurgent findings as detailed above. REFERENCES: Justin H, et al. Guidelines for Management of Incidental Pulmonary Nodules Detected on CT Images: From the Fleischner Society 2017. Radiology. 2017;284(1):228-243.
== END 2024-09-29 13:10 | disposition home or self-care (01) ==
PROVIDERS: PCP Family Medicine; Visit Provider Family Medicine
DX: R91.8 Other nonspecific abnormal finding of lung field (principal); R93.7 Abnormal findings on diagnostic imaging of other parts of musculoskeletal system; H74.8X3 Other specified disorders of middle ear and mastoid, bilateral; H92.01 Otalgia, right ear; K57.90 Diverticulosis of intestine, part unspecified, without perforation or abscess without bleeding; Z90.49 Acquired absence of other specified parts of digestive tract; N85.8 Other specified noninflammatory disorders of uterus; I25.84 Coronary atherosclerosis due to calcified coronary lesion
CPT/HCPCS: 78815; A9552

== ENCOUNTER 2024-10-20 08:32 | Outpatient (CLI) | payer MEDICARE, OTHER, SELFPAY ==
--- NOTE | 2024-10-20 08:39 | MR_ITS ---
WS: [id number] MRI THORACIC SPINE with and without contrast HISTORY: ABNORMAL BONE MARROW EXAM, history of breast cancer. Abnormal uptake in the lower thoracic s pine on PET/CT imaging. COMPARISON: PET/CT 09/29/2024 TECHNIQUE: Multiplanar sequences are performed in sagittal and axial planes. MultiHance 9 mL IV. Normal thoracic vertebral body alignment. Disc spaces and vertebral body heights are normal. Signal w ithin the cord is normal. There is no atrophy or enlargement. Normal tapering of the conus. Previousl y described signal abnormality in the thoracic cord at T11 by PET/CT is not definitely identified by MRI. There is normal T2 and T1 signal. No enhancement. No disc protrusions or significant central or foraminal stenosis. No marrow signal abnormalities. MR/MR thoracic spine wo/w [id number] IMPRESSION: 1. No MRI abnormality in the thoracic cord at the T11 level as suspected by PE T/CT imaging. There is no enhancement, cord atrophy or enlargement. If pain con tinues it may be of benefit to repeat the PET/CT imaging or thoracic MRI with c ontrast. 2. No central disc protrusions or significant stenosis.
[2024-10-20] MEDS: gadobenate dimeglumine 20 mL vial IV (10:52)
== END 2024-10-20 08:33 | disposition home or self-care (01) ==
LOC: RAD 08:34
PROVIDERS: PCP Family Medicine; Visit Provider Family Medicine
DX: R89.9 Unspecified abnormal finding in specimens from other organs, systems and tissues (principal)
CPT/HCPCS: 72157